=== PATIENT | female | born 1950 | race Caucasian/White ===

== ENCOUNTER → 2022-12-16 | Outpatient (CLI) | payer MEDICARE, OTHER, SELFPAY ==
--- NOTE | 2022-12-16 09:52 | ECHOD_ITS ---
Reason For Study: EDEMA Procedure This was a 2D Doppler, Color Flow transthoracic echocardiogram. Exam performed in department. Left Ventricle Normal size and thickness. The left ventricular ejection fraction is 65 %. Normal diastology for age. Right Ventricle Normal right ventricle. Atria The left atrium is mildly enlarged. Normal right atrium. Mitral Valve Mild-Moderate (1-2+) mitral valve insufficiency. Tricuspid Valve Normal pulmonary artery pressure. Mild tricuspid valve insufficiency. Aortic Valve Trisinus/trileaflet aortic valve. Pulmonic Valve The pulmonic valve is not well visualized. Great Vessels Normal sized aortic root. Pericardium/Pleural No pericardial effusion. MMode/2D Measurements & Calculations LVIDd: 5.0 cm IVSd: 0.75 cm Ao root diam: 3.5 cm LVIDs: 3.5 cm LVPWd: 0.75 cm RVDd: 3.2 cm FS: 28.5 % LAV(MOD-bp): 54.7 ml LVAd ap4: 26.6 cm2 SV(MOD-sp4): 55.0 ml LAV(MOD-bp) Indexed: 27.6 ml/m2 LVLd ap4: 7.1 cm LAV(MOD-sp2): 41.8 ml EDV(MOD-sp4): 81.2 ml LAV(MOD-sp4): 56.8 ml EDV(sp4-el): 84.0 ml LVAs ap4: 13.0 cm2 LVLs ap4: 5.6 cm ESV(MOD-sp4): 26.2 ml ESV(sp4-el): 25.6 ml EF(MOD-sp4): 67.7 % EF(sp4-el): 69.5 % SV(sp4-el): 58.4 ml LA A4 area: 19.6 cm2 LA dimension(2D): 3.5 cm RA A4 area: 12.9 cm2 TAPSE: 2.6 cm Time Measurements MV dec time: 0.09 sec Doppler Measurements & Calculations MV E max trey: 88.4 cm/sec Lat Peak E' Trey: 6.9 cm/sec Med Peak E' Trey: 9.0 cm/sec MV A max trey: 118.2 cm/sec E/E' lat: 12.9 E/E' med: 9.8 MV E/A: 0.75 MV V2 max: 112.1 cm/sec Ao V2 max: 160.6 cm/sec MV max P.0 mmHg MV dec slope: 1007 cm/sec2 Ao max P.3 mmHg MV V2 mean: 81.6 cm/sec Ao V2 mean: 106.8 cm/sec MV mean P.9 mmHg Ao mean P.2 mmHg MV V2 VTI: 29.2 cm Ao V2 VTI: 34.5 cm AV (velocity ratio): 0.77 LV V1 max: 125.3 cm/sec PA V2 max: 94.8 cm/sec LV V1 max P.3 mmHg PA V2 mean: 70.7 cm/sec LV V1 mean P.3 mmHg LV V1 mean: 84.4 cm/sec LV V1 VTI: 26.5 cm ECHO/Echo Complete Interpretation Summary The left ventricular ejection fraction is 65 %. The left atrium is mildly enlarged. Mild-Moderate (1-2+) mitral valve insufficiency. Mild tricuspid valve insufficiency. Ordering Physician: Wayne Duenas Referring Physician: Wayne Duenas Performed By: Elba Iverson RCS
== END | disposition home or self-care (01) ==
LOC: CVS 09:50
PROVIDERS: PCP Family Medicine; Referring Provider Family Medicine; Visit Provider Family Medicine
DX: R60.0 Localized edema (principal)
CPT/HCPCS: 93306

== ENCOUNTER → 2023-05-17 | Outpatient (CLI) | payer MEDICARE, OTHER, SELFPAY ==
--- OUTSIDE RECORDS SUMMARY | 2023-05-17 12:34 | XMS RPT_ITS | CCD ---
Author Name Unknown Address [address] [place] [address] Organization [facility] Care Team Providers Care Recreation Therapist Name Role Phone Caitlin Santoyo Unavailable Unavailable Caitlin Santoyo Unavailable Unavailable Caitlin Santoyo Unavailable Unavailable Caitlin Santoyo Unavailable Unavailable Ivanauskas, Saulius Unavailable Unavailable Ivanauskas, Saulius Unavailable Unavailable Natanael, Ms. Caitlin Abreu Attending Unavail able Natanael, Ms. Caitlin Abreu Primary Care Unavail able Natanael, Ms. Caitlin Abreu Primary Care Unavail able Hellinger, Ms. Caitlin Abreu Attending Unavail able CAITLIN SANTOYO Primary Care Unavailable Allergies Allergy Classification Reported Allergen(s) Allergy Type Date of Onset Reaction(s) Facility (1 source) Sulfonamides (Antibiotic); Translations: [sulfa drugs] Propensity to adverse reactions to drug (disorder) [facility] Repository (1 source) ALLERGIES NOT ON FILE; Translations: [ALLERGIES NOT ON FILE] Propensity to adverse reactions (disorder) [facility] Repository Problems Problem Classification Problem Date Documented Da te Episodic/Chronic Disorders of lipid metabolism (2 sources) Mixed hyperlipidemia; Translations: [Mixed hyperlipidemia] Onset: 03-24-2023 Chronic Essential hypertension (2 sources) Essential (primary) hypertension; Translations: [Essential (primary) hypertension] Onset: 03-24-2023 Chronic Malaise and fatigue (2 sources) Other fatigue; Translations: [Other fatigue] Onset: 03-24-2023 Episodic Other non-traumatic joint disorders (4 sources) Pain in right ankle and joints of right foot; Translations: [Pain in right ankle] Onset: 06-29-2022 Episodic Other screening for suspected conditions (not mental disorders or infectious disease) (5 sources) Encounter for screening mammogram for malignant neoplasm of breast; Translations: [Encounter for screening for osteoporosis] Onset: 05-10-2022 Episodic Other skin disorders (1 source) Localized swelling, mass and lump, right lower limb; Translations: [Localized swelling, mass and lump, right lower limb] Onset: 06-29-2022 Episodic Residual codes; unclassified (4 sources) Asymptomatic menopausal state; Translations: [Asymptomatic menopausal state] Onset: 05-10-2022 Episodic Results Test Name Value Interpretation Reference Range Facil ity Encounters Encounter Date Encounter Type Care Provider Facility Start: 03-24-2023 End: 03-25-2023 ambulatory CAITLIN L [facility] Start: 06-29-2022 ambulatory Ms. Caitlin Santoyo Facility:[id number] Start: 05-10-2022 ambulatory Ms. Caitlin Santoyo Facility:[id number] Start: 03-25-2017 End: 03-25-2017 Emergency department patient visit Caitlin Santoyo Facility:[facility] Start: 01-13-2017 End: 01-14-2017 Patient encounter Caitlin Santoyo Facility:[facility] Procedures Date Procedure Procedure Detail Performing Clinician Start: 03-24-2023 CBC W Auto Different ial panel - Blood CAITLIN SANTOYO Start: 03-24-2023 Comprehensive metabo lic 2000 panel - Serum or Plasma CAITLIN SANTOYO Start: 03-24-2023 Lipid panel CAITLIN NORTHER Start: 03-24-2023 TSH WITH REFLEX TO F REE T4 IF ABNORMAL CAITLIN SANTOYO Payers Date Payer Category Payer Medicare 2015 Private Health Insurance [id number] 2013 Medicare [id number] 1950 Unknown [id number] 1950 Unknown [id number] 1950 Unknown [id number] Summary Purpose Family History No Family History Records FoundNo Family History Records FoundNo Family History Records Found Advance Directives No Advanced Directives Records FoundNo Advanced Directives Records FoundNo Advanced Directives Records Found Additional Source Comments INFORMATION SOURCE (unrecogn ized section and content) DATE CREATED AUTHOR AUTHOR'S ORGANIZ ATION 07/05/2022 [facility] DATE CREATED AUTHOR AUTHOR'S ORGANIZ ATION 03/30/2023 [facility] FOR RECORDS PERTAINING TO PATIENTS WHO ARE OR HAVE BEEN ENROLLED IN A CHEMICAL DEPENDENCY/SUBSTANCEABUSE PROGRAM, SOME INFORMATION MAY BE OMITTED. This clinical summary was aggregated from multiple sources. Caution should be exercised in using it in the provision of clinical care. This summary normalizes information from multiple sources, and as a consequence, information in this document may materially change the coding, format and clinical context of patient data. In addition, data may be omitted in some cases. CLINICAL DECISIONS SHOULD BE BASED ON THE PRIMARY CLINICAL RECORDS. [facility] [employer] [facility]. provides no warranty or guarantee of the accuracy or completeness of information in this document.
--- NOTE | 2023-05-17 13:44 | NEURO ---
NCS and/or EMG Patient Report Ordering Doctor: Flaco Santoyo NP DATE OF SERVICE: 05/17/23 Clinical Summary: This is a 73 year old female patient presenting with symptoms of numbness and tingling in both feet. This EMG/NCS was performed to evaluate for peripheral polyneuropathy. Nerve Conduction Studies Summary: The left superficial peroneal SNAP was absent. The left peroneal-EDB CMAP amplitude was reduced when stimulated at the fibular head - likely due to understimulation. The right peroneal motor conduction velocity was reduced. Otherwise, nerve conduction studies performed were normal. Needle Examination Summary: Needle examination of select muscles of the bilateral lower extremities was normal. Impression: There is no definite electrodiagnostic evidence of a large-fiber peripheral polyneuropathy. Please be aware, however, that conventional electrodiagnostic testing (EMG/NCS) cannot rule out a small-fiber based peripheral polyneuropathy. Multi Select Codes Neurology Neurology Interp Codes: 29059-10 Musc test done w/n test comp (interp) (2) and 94638-62 Nrv cndj test 7-8 studies (interp)
== END | disposition home or self-care (01) ==
LOC: PSN 12:13
PROVIDERS: PCP Nurse Practitioner Family; Referring Provider Nurse Practitioner Family; Visit Provider Nurse Practitioner Family
DX: R20.2 Paresthesia of skin (principal)
CPT/HCPCS: 95886; 95910